=== PATIENT | male | born 1955 | race Caucasian/White ===

== ENCOUNTER 2022-04-27 02:21 | Emergency (ER) | payer MEDICAID ==
[~2022-04-27] VITALS: Ht 172.7 cm; Wt 84.1 kg
[2022-04-27 02:28] VITALS: BP 159/96
[2022-04-27] MEDS ORDERED: SULF-261 PO ×2 (04:10→04:19)
== END 2022-04-27 04:19 | disposition home or self-care (01) ==
LOC: EMS 02:22
DX: L03.116 Cellulitis of left lower limb (principal); L03.115 Cellulitis of right lower limb; F12.90 Cannabis use, unspecified, uncomplicated; F15.10 Other stimulant abuse, uncomplicated; F17.210 Nicotine dependence, cigarettes, uncomplicated; F19.10 Other psychoactive substance abuse, uncomplicated; I10 Essential (primary) hypertension
CPT/HCPCS: 99283; Z7502